=== PATIENT | female | born 1970 | race Caucasian/White ===

== ENCOUNTER → 2016-10-26 | Outpatient (CLI) | payer BC ==
--- NOTE | 2016-10-28 09:45 | MM ---
Reason for exam: screening (asymptomatic). Last mammogram was performed 1 year and 11 months ago. History: Benign US left CoreBiopsy of both breasts, December 14, 2007. Physical Findings: A clinical breast exam by your physician is recommended on an annual basis and results should be correlated with mammographic findings. MG Screening Mammo w CAD Bilateral CC and MLO view(s) were taken. Prior study comparison: November 13, 2014, bilateral MG screening mammo w CAD. August 22, 2012, bilateral digital screening mammo w/CAD. The breast tissue is heterogeneously dense. This may lower the sensitivity of mammography. Focal asymmetry upper central right breast. This finding is changed when compared with previous exams. ASSESSMENT: Incomplete: need additional imaging evaluation, BI-RAD 0 RECOMMENDATION: Special view mammogram and ultrasound of the right breast. [facility] will attempt to contact patient to return for supplemental views and ultrasound.
== END | disposition home or self-care (01) ==
LOC: RADMAMWWP 15:40
PROVIDERS: ATTEND Obstetrics & Gynecology
DX: Z12.31 Encounter for screening mammogram for malignant neoplasm of breast (principal); R92.2 Inconclusive mammogram

== ENCOUNTER → 2016-10-29 | Outpatient (CLI) | payer BC ==
--- NOTE | 2016-10-29 08:37 | MM ---
Reason for exam: additional evaluation requested from abnormal screening. Last mammogram was performed less than 1 month ago. History: Benign US left CoreBiopsy of both breasts, December 14, 2007. Cyst aspiration of the right breast, 2006. Physical Findings: Nurse did not find any significant physical abnormalities on exam. MG Work Up Mamm w CAD RT ML, spot compression CC, and spot compression MLO view(s) were taken of the right breast. Prior study comparison: October 26, 2016, bilateral MG screening mammo w CAD. November 13, 2014, bilateral MG screening mammo w CAD. August 22, 2012, bilateral digital screening mammo w/CAD. The breast tissue is heterogeneously dense. This may lower the sensitivity of mammography. Dense tissue persist on the additional views. Some benign milk of calcium and round calcifications are demonstrated. These results were verbally communicated with the patient and result sheet given to the patient on 10/29/16. ASSESSMENT: Incomplete: need additional imaging evaluation, BI-RAD 0 RECOMMENDATION: Ultrasound of the right breast. (periareolar)
--- NOTE | 2016-10-29 08:40 | USB ---
Reason for exam: additional evaluation requested from abnormal screening. History: Benign US left CoreBiopsy of both breasts, December 14, 2007. Cyst aspiration of the right breast, 2006. US Breast Workup Limited RT Right breast ultrasound demonstrates a 0.93 x 0.68 x 0.77cm mixed lesion at 1 o'clock, can be reassessed in 6 months and several cystic, benign lesions measuring 0.62 x 0.55 x 0.62cm at 3 o'clock, 0.61 x 0.30 x 0.39cm at 5 o'clock, 0.8 x 0.17 x 0.54cm at 5 o'clock and 2.4 x 0.4 x 0.94cm at 7 o'clock. These results were verbally communicated with the patient and result sheet given to the patient on 10/29/16. ASSESSMENT: Probably benign, BI-RAD 3 RECOMMENDATION: Ultrasound of the right breast in 6 months. (targeted 1 o'clock)
== END | disposition home or self-care (01) ==
LOC: RADMAMWWP 06:59
PROVIDERS: ATTEND Obstetrics & Gynecology
DX: R92.8 Other abnormal and inconclusive findings on diagnostic imaging of breast (principal); R92.2 Inconclusive mammogram
CPT/HCPCS: 76642; G0206

== ENCOUNTER → 2017-05-21 | Outpatient (CLI) | payer BC, OTHER ==
--- NOTE | 2017-05-24 07:42 | USB ---
Reason for exam: follow-up at short interval from prior study. History: Benign US left CoreBiopsy of both breasts, December 14, 2007. Cyst aspiration of the right breast, 2006. Physical Findings: Nurse did not find any significant physical abnormalities on exam. US Breast RT Right breast ultrasound includes all four quadrants, the retroareolar region and axilla. Finding demonstrates a 0.7 x 0.7 x 0.6cm oval, stable, cystic lesion at 3 o'clock, a 0.4 x 0.4 x 0.3cm oval, cystic lesion at 5 o'clock, a 0.3 x 0.6 x 0.2cm oval, lesion too small to characterize at 5 o'clock, a 0.3 x 0.4 x 0.2cm oval, lesion too small to characterize at 5 o'clock, a 1.1 x 0.6 x 0.4cm cluster too small to characterize at 7 o'clock possible debris, a 0.5 x 0.6 x 0.5cm oval, cystic lesion at 8 o'clock, a 0.7 x 0.5 x 0.4cm oval, cystic lesion at 9 o'clock and a 0.4 x 0.4 x 0.4cm hypoechoic lesion at 9 o'clock. Overall fibrocystic change. These results were verbally communicated with the patient and result sheet given to the patient on 05/21/17. ASSESSMENT: Probably benign, BI-RAD 3 RECOMMENDATION: Follow-up diagnostic mammogram of both breasts in 6 months. Back on schedule.
== END | disposition home or self-care (01) ==
LOC: RADUSWWP 10:08
PROVIDERS: ATTEND Obstetrics & Gynecology
DX: R92.8 Other abnormal and inconclusive findings on diagnostic imaging of breast (principal)

== ENCOUNTER → 2018-01-12 | Outpatient (CLI) | payer BC, OTHER ==
--- NOTE | 2018-01-12 13:54 | MM ---
Reason for exam: additional evaluation requested from prior study. Last mammogram was performed 1 year and 3 months ago. History: Benign US left CoreBiopsy of both breasts, December 14, 2007. Cyst aspiration of the right breast, 2006. Took hormonal contraceptives beginning at age 18. Physical Findings: Nurse did not find any significant physical abnormalities on exam. MG 3D Diag Mammo W/Cad EUGENIO Bilateral CC and MLO view(s) were taken. Prior study comparison: October 29, 2016, right breast MG work up mamm w CAD RT. October 26, 2016, bilateral MG screening mammo w CAD. The breast tissue is heterogeneously dense. This may lower the sensitivity of mammography. Finding: There is a typically benign equal density (isodense), obscured round mass located 7 cm from the nipple in the 9 o'clock posterior position of the right breast. Previous mammotome biopsy in the left breast. New finding since October 29, 2016 and October 26, 2016. These results were verbally communicated with the patient and result sheet given to the patient on 01/12/18. ASSESSMENT: Incomplete: need additional imaging evaluation, BI-RAD 0 RECOMMENDATION: Ultrasound of the right breast.
--- NOTE | 2018-01-12 13:57 | USB ---
Reason for exam: additional evaluation requested from abnormal screening. History: Benign US left CoreBiopsy of both breasts, December 14, 2007. Cyst aspiration of the right breast, 2006. Took hormonal contraceptives beginning at age 18. US Breast Limited RT Right breast ultrasound demonstrates a 0.5 x 0.5 x 0.5cm cystic lesion with nodule at 8 o'clock for which a biopsy is recommended, a 0.5 x 0.4 x 0.4cm cystic lesion at 12 o'clock and a 0.5 x 0.4 x 0.6cm mixed lesion at 8:30. These results were verbally communicated with the patient and result sheet given to the patient on 01/12/18. ASSESSMENT: Suspicious, BI-RAD 4 RECOMMENDATION: Ultrasound core biopsy of the right breast. Called Dr. Thomas with mammographic findings and has scheduled an appointment for the patient for 01/27/18 at 9:[address] Garcia. PRELIMINARY REPORT CALLED AND FAXED TO DR. GARCIA ON 01/12/18.
== END | disposition home or self-care (01) ==
LOC: RADMAMWWP 10:51
PROVIDERS: ATTEND Obstetrics & Gynecology
DX: R92.8 Other abnormal and inconclusive findings on diagnostic imaging of breast (principal)
CPT/HCPCS: 77066; 76642; G0279

== ENCOUNTER → 2018-02-07 | Day surgery (SDC) | payer BC, OTHER ==
[2018-02-07 07:24] VITALS: RESP 16; BMI 33.4
[2018-02-07 08:53] VITALS: BP 139/89; PULSE 84; TEMP 98.4
--- NOTE | 2018-02-07 09:39 | USB ---
EXAMINATION TYPE: US breast aspiration single RT DATE OF EXAM: 02/07/2018 COMPARISON: 01/12/2018 CLINICAL HISTORY: R92.8 abnormal mammo. PROCEDURE: The procedure of ultrasound guided core biopsy was explained to the patient. Benefits, alternatives, and risks were discussed. An informed consent was then obtained. Preprocedural timeout was performed. The patient was placed in supine positioning for imaging and for the procedure. The overlying skin was prepped and draped in usual sterile fashion. 10 cc of lidocaine without epinephrine was used as anesthetic into the skin and subcutaneous tissue up to the 0.5 x 0.5 x 0.5 cm cyst at the 8:00 position within the right breast. Under ultrasound guidance, an 18-gauge spinal needle was used to aspirate the cyst and perform fine-needle aspiration. Scant simple thin yellow fluid was withdrawn and therefore no biopsy marker was placed. Sample sent to the pathology department for analysis. The patient tolerated the procedure well without any immediate complication. The patient was kept in the radiology department for short stay after the procedure and then discharged home in stable condition. IMPRESSION: Successful ultrasound-guided cyst aspiration of a 5 mm cyst at the 8:00 position, that appeared complicated on the ultrasound dated 01/12/2018. Pathology pending. Pathology Results: High Risk RIGHT BREAST CYSTIC LESION, FINE NEEDLE ASPIRATION: SUSPICIOUS FOR PAPILLARY LESION, SEE COMMENT. Recommendation Follow up ultrasound of the right breast in 6 months. (to assess for re-accumulation of fluid) Surgical consult of the right breast. (non-atypical cells only suggesting papillary lesion) MTDD
== END | disposition home or self-care (01) ==
LOC: RADUSWWP 06:59
PROVIDERS: ATTEND Surgery
DX: R92.8 Other abnormal and inconclusive findings on diagnostic imaging of breast (principal); Z80.0 Family history of malignant neoplasm of digestive organs
CPT/HCPCS: 88173; 76942; 19000; J2001

== ENCOUNTER → 2018-02-17 | Outpatient (CLI) | payer BC, OTHER ==
--- NOTE | 2018-02-17 09:29 | P.GSHP ---
History of Present Illness H&P Date: 02/17/18 The patient is a 47-year-old white female who underwent an ultrasound aspiration of a cyst on 02/07/2018. The pathology revealed a papillary lesion. Recommendation is for surgical excision, however no clip was left behind as it was felt that this was a non-worrisome cyst. Patient denies any problems or complications after her cyst aspiration. This was at the 8 o'clock position of the right breast. Family history of any cancers: Negative for cancer Hormonal recurrent: control Pills: approximately 3 years 3 pregnancies first at the age of 25 Patient breast fed all 3 Menarche: 12 Patient is having regular periods Patient surgical history: 1. Core biopsy of the left breast which was benign approximately 2006 2. Sebaceous cyst removed from the right breast in the past - Constitutional Constitutional: Denies chills, Denies fever - EENT Eyes: denies blurred vision, denies pain Ears, nose, mouth and throat: Denies headache, Denies sore throat - Breasts Breasts: bilateral: as per HPI - Cardiovascular Cardiovascular: Denies chest pain, Denies shortness of breath - Respiratory Respiratory: Denies cough, Denies 7 - Gastrointestinal Gastrointestinal: Denies abdominal pain, Denies diarrhea, Denies nausea, Denies vomiting - Genitourinary (Female) Comment: Menstrual periods every 3 weeks Genitourinary: Denies dysuria, Denies hematuria - Genitourinary (Male) Genitourinary: Denies dysuria, Denies hematuria - Musculoskeletal Musculoskeletal: Denies myalgias - Integumentary Integumentary: Denies pruritus, Denies rash - Neurological Neurological: Denies numbness, Denies weakness - Psychiatric Psychiatric: Denies anxiety, Denies depression - Endocrine Endocrine: Denies fatigue, Denies weight change Past Medical History Past Medical History: No Reported History History of Any Multi-Drug Resistant Organisms: None Reported Additional Past Surgical History / Comment(s): Hx. benign left breast u/s core bx. 2007 Past Anesthesia/Blood Transfusion Reactions: No Reported Reaction Past Psychological History: No Psychological Hx Reported Smoking Status: Never smoker Past Alcohol Use History: None Reported Past Drug Use History: None Reported Medications and Allergies Home Medications Medication Instructions Recorded Confirmed Type No Known Home Medications [No 01/31/18 02/07/18 History Known Home Medications] Allergies Allergy/AdvReac Type Severity Reaction Status Date / Time Penicillins Allergy Rash/Hives Verified 02/07/18 07:15 Surgical - Exam - General well developed, well nourished, no distress - Eyes normal ocular movement, no icteric - ENT no hearing loss, no congestion - Neck no masses, trachea midline - Respiratory normal respiratory effort, clear to auscultation - Cardiovascular Rhythm: regular Heart Sounds: normal: S1, S2 - Abdomen Abdomen: soft, non tender, no guarding, no rigid, no rebound - Integumentary no rash, no abnormal pigmentation - Neurologic no disoriented, no combative - Psychiatric oriented to time, oriented to person, oriented to place, speech is normal, memory intact Breast examination: Right breast: Fibrocystic changes no discrete dominant mass or nodules of concern, the area of the biopsy is well-healed with no evidence of any infection Left breast: Fibrocystic changes no discrete dominant masses or nodules of concern increased fibrocystic tissue at the 12 o'clock position Bilateral axilla: No adenopathy of concern Results Cytologies from FNA of the right breast reveals papillary cells Assessment and Plan Assessment: Impression/plan: 1. Abnormal ultrasound of the right breast status post aspiration Papillary cells noted when aspiration done, no clip was left behind were therefore I tried to determine the best way to evaluate this area I will discuss with radiology whether an MRI would be indicated or repeat ultrasound now to identify the area where the aspiration was done if this is not possible that we'll most likely repeat ultrasound in 3 months time with repeat examination at that time the patient notices anything prior to that she will call us immediately 2. Cystic breast changes
[2018-02-17 09:40] VITALS: BP 133/87; PULSE 84
[2018-02-17 09:50] VITALS: RESP 18; TEMP 98; BMI 73.7
--- NOTE | 2018-02-17 11:05 | USB ---
Reason for exam: clinical finding. History: High risk US breast aspiration single RT of the right breast, February 07, 2018. Benign US left CoreBiopsy of both breasts, December 14, 2007. Cyst aspiration of the right breast, 2006. Took hormonal contraceptives beginning at age 18. US Breast Limited RT Right limited breast ultrasound including focal area of concern, retroareolar and axilla demonstrates overall fibrocystic change. These results were verbally communicated with the patient and result sheet given to the patient on 02/17/18. ASSESSMENT: Probably benign, BI-RAD 3 RECOMMENDATION: Ultrasound of the right breast in 3 months.
--- NOTE | 2018-02-17 11:14 | P.PN ---
Progress Note - Text Progress Note Date: 02/17/18 Patient had a repeat ultrasound today to see if any hematoma was noted at the site where the prior core biopsy had been done. No hematoma was noted and the recommendations for patient to have a repeat ultrasound and physical exam in 3 months time. It was felt that an MRI would not be beneficial at this time after review with radiology. Patient understands and will be seen in 3 months.
== END | disposition home or self-care (01) ==
LOC: WWCWWP 08:55
PROVIDERS: ATTEND Surgery
DX: N60.01 Solitary cyst of right breast (principal)

== ENCOUNTER → 2018-05-23 | Outpatient (CLI) | payer BC, OTHER ==
--- NOTE | 2018-05-24 10:20 | USB ---
History: High risk US breast aspiration single RT of the right breast, February 07, 2018. Benign US left CoreBiopsy of both breasts, December 14, 2007. Cyst aspiration of the right breast, 2006. Took hormonal contraceptives beginning at age 18. Physical Findings: Nurse Summary: 0.5 cm round pea size nodule right breast at 6 o'clock. Scattered upper outer quadrant nodularities. US Breast RT Right complete breast ultrasound includes all four quadrants, the retroareolar region and axilla. Finding demonstrates multicystic right breast. Not all measured that were seen as some very small. A 0.4 x 0.5 x 0.3 cm oval hypoechoic at 12 o'clock, a 0.6 x 0.6 x 0.6 oval cystic at 3 o'clock, a 0.4 x 0.3cm oval mixed at 3 o'clock, a0.3 x 0.6 x 0.3 cm oval mixed at 5 o'clock these two are probably small deep cysts. A 0.4 x 0.4 x 0.2 cm oval cystic at 5 o'clock, a 0.6 x 0.6 cm oval cystic at 6 o'clock, a 0.3 x 0.3 x 0.4 cm cystic at 6 o'clock, a 0.5 x 0.3 x 0.3 cm hypoechoic at 8 o'clock, a possible residual cystic lesion from prior aspiration no change in size at 8 o'clock measuring 0.2 x 0.2 x 0.2 cm. At the 9 o'clock multiple small cysts in dense tissue, and at 10 o'clock a 0.5 x 0.5 x 0.4 oval cystic lesion. These results were verbally communicated with the patient and result sheet given to the patient on 05/23/18. ASSESSMENT: Probably benign, BI-RAD 3 RECOMMENDATION: Ultrasound of the right breast in 6 months. Patient will be due for her mammogram in January 2019.
== END ==
LOC: RADUSWWP 09:39
PROVIDERS: ATTEND Obstetrics & Gynecology
DX: R92.8 Other abnormal and inconclusive findings on diagnostic imaging of breast (principal)

== ENCOUNTER → 2019-02-28 | Outpatient (CLI) | payer BC, OTHER ==
--- NOTE | 2019-02-28 14:58 | MM ---
Reason for exam: additional evaluation requested from prior study. Last mammogram was performed 1 year and 2 months ago. History: High risk US breast aspiration single RT of the right breast, February 07, 2018. Benign US left CoreBiopsy of both breasts, December 14, 2007. Cyst aspiration of the right breast, 2006. Took hormonal contraceptives beginning at age 18. Physical Findings: Nurse did not find any significant physical abnormalities on exam. MG 3D Diag Mammo W/Cad EUGENIO Bilateral CC and MLO view(s) were taken. Prior study comparison: January 12, 2018, bilateral MG 3d diag mammo w/cad EUGENIO. October 29, 2016, right breast MG work up mamm w CAD RT. The breast tissue is heterogeneously dense. This may lower the sensitivity of mammography. There is a smaller right upper outer quadrant posterior depth mass. No suspicious abnormality. Left biopsy marker noted. Post biopsy change bilaterally. These results were verbally communicated with the patient and result sheet given to the patient on 02/28/19. ASSESSMENT: Benign, BI-RAD 2 RECOMMENDATION: Routine screening mammogram of both breasts in 1 year.
--- NOTE | 2019-02-28 15:04 | USB ---
Reason for exam: follow-up at short interval from prior study. History: High risk US breast aspiration single RT of the right breast, February 07, 2018. Benign US left CoreBiopsy of both breasts, December 14, 2007. Cyst aspiration of the right breast, 2006. Took hormonal contraceptives beginning at age 18. US Breast RT Right complete breast ultrasound includes all four quadrants, the retroareolar region and axilla. Finding demonstrates several oval, cystic lesions measuring 5 x 4 x 4mm at 12 o'clock prior 4 x 5 x 3mm, increase through transmission, cystic, 4 x 4 x 5mm at 6 o'clock prior 3 x 3 x 5mm, stable deep cyst, 5 x 3 x 5mm at 6 o'clock prior 6 x 6mm, stable deep cyst, 5 x 5 x 5mm at 7 o'clock prior measured at 6 o'clock 5 x 6 x 6mm, cystic, 6 x 4 x 6mm at 8 o'clock minimally complicated, prior size 5 x 3 x 3mm good through transmission and other smaller cysts at 8 o'clock. These results were verbally communicated with the patient and result sheet given to the patient on 02/28/19. ASSESSMENT: Benign, BI-RAD 2 RECOMMENDATION: Routine screening mammogram of both breasts in 1 year.
== END ==
LOC: RADMAMWWP 13:31
PROVIDERS: ATTEND Obstetrics & Gynecology
DX: R92.8 Other abnormal and inconclusive findings on diagnostic imaging of breast (principal)
CPT/HCPCS: 77062; 77066

== ENCOUNTER → 2020-04-29 | Outpatient (CLI) | payer BC ==
--- NOTE | 2020-04-30 12:06 | MM ---
Reason for exam: screening (asymptomatic). Last mammogram was performed 1 year and 2 months ago. History: High risk US breast aspiration single RT of the right breast, February 07, 2018. Benign US left CoreBiopsy of both breasts, December 14, 2007. Cyst aspiration of the right breast, 2006. Took hormonal contraceptives beginning at age 18. Physical Findings: A clinical breast exam by your physician is recommended on an annual basis and results should be correlated with mammographic findings. MG 3D Screening Mammo W/Cad Bilateral CC and MLO view(s) were taken. Prior study comparison: February 28, 2019, bilateral MG 3d diag mammo w/cad EUGENIO. January 12, 2018, bilateral MG 3d diag mammo w/cad EU[facility]. October 26, 2016, bilateral MG screening mammo w CAD. The breast tissue is heterogeneously dense. This may lower the sensitivity of mammography. No significant changes when compared with prior studies. ASSESSMENT: Benign, BI-RAD 2 RECOMMENDATION: Routine screening mammogram of both breasts in 1 year.
== END | disposition home or self-care (01) ==
LOC: RADMAMWWP 09:13
PROVIDERS: ATTEND Obstetrics & Gynecology
DX: Z12.31 Encounter for screening mammogram for malignant neoplasm of breast (principal)
CPT/HCPCS: 77063; 77067

== ENCOUNTER → 2021-06-05 | Outpatient (CLI) | payer BC ==
--- NOTE | 2021-06-09 11:44 | MM ---
Reason for exam: screening (asymptomatic). Last mammogram was performed 1 year and 1 month ago. History: High risk US breast aspiration single RT of the right breast, February 07, 2018. Benign US left CoreBiopsy of both breasts, December 14, 2007. Cyst aspiration of the right breast, 2006. Took hormonal contraceptives beginning at age 18. Physical Findings: A clinical breast exam by your physician is recommended on an annual basis and results should be correlated with mammographic findings. MG 3D Screening Mammo W/Cad Bilateral CC and MLO view(s) were taken. Prior study comparison: April 29, 2020, bilateral MG 3d screening mammo w/cad. February 28, 2019, bilateral MG 3d diag mammo w/cad EU[facility]. January 12, 2018, bilateral MG 3d diag mammo w/cad EU[facility]IO. October 26, 2016, bilateral MG screening mammo w CAD. The breast tissue is heterogeneously dense. This may lower the sensitivity of mammography. Previous mammotome biopsy in the left breast. Stable regional punctate calcifications. No significant changes when compared with prior studies. ASSESSMENT: Benign, BI-RAD 2 RECOMMENDATION: Routine screening mammogram of both breasts in 1 year. Patient should continue monthly self breast exams. A negative report should not preclude additional follow up of suspicious palpable abnormalities.
== END | disposition home or self-care (01) ==
LOC: RADMAMWWP 09:21
PROVIDERS: ATTEND Obstetrics & Gynecology
DX: Z12.31 Encounter for screening mammogram for malignant neoplasm of breast (principal)
CPT/HCPCS: 77063; 77067

== ENCOUNTER → 2024-03-29 | Outpatient (CLI) | payer BC ==
--- NOTE | 2024-03-30 10:34 | MM ---
Reason for Exam: Screening (asymptomatic). Last mammogram was performed 1 year(s) and 3 month(s) ago. Patient History: Menarche at age 12. First Full-Term at age 25. Postmenopausal. Hormonal Contraceptives, from age 18 until age 22. 2006, Cyst Aspiration on the Right side. 02/07/2018, High risk Cyst Aspiration on the right side. 12/14/2007, Bilateral Benign Core Biopsy. Risk Values: Abril 5 year model risk: 1.4%. NCI Lifetime model risk: 11.0%. Prior Study Comparison: 04/29/2020 Bilateral Screening Mammogram, [facility]. 06/05/2021 Bilateral Screening Mammogram, [facility]. 12/17/2022 Bilateral MG 3D screening mammo w/cad, [facility]. Tissue Density: The breasts are heterogeneously dense, which may obscure small masses. Findings: Analyzed By CAD. There is no suspicious group of microcalcifications or new suspicious mass in either breast. Overall Assessment: Benign, BI-RAD 2 Management: Screening Mammogram of both breasts in 1 year. . Patient should continue monthly self-breast exams. A clinical breast exam by your physician is recommended on an annual basis. This exam should not preclude additional follow-up of suspicious palpable abnormalities. Note on Abril scores and lifetime risk: 1. A Abril score greater than 3% is considered moderate risk. If this is the case, consider specialist referral to assess eligibility for a risk reducing agent. 2. If overall lifetime risk for the development of breast cancer is 20% or higher, the patient may qualify for future screening with alternating mammogram and breast MRI. Electronically signed and approved by: Neeraj Irving M.D. Radiologis
== END | disposition home or self-care (01) ==
LOC: RADMAMWWP 08:55
PROVIDERS: ATTEND Family Medicine
DX: Z12.13 Encounter for screening for malignant neoplasm of small intestine (principal); Z78.0 Asymptomatic menopausal state
CPT/HCPCS: 77063; 77067

== ENCOUNTER → 2025-04-17 | Outpatient (CLI) | payer BC ==
--- NOTE | 2025-04-17 10:02 | MM ---
Reason for Exam: Screening (asymptomatic). Last mammogram was performed 1 year(s) and 1 month(s) ago. Patient History: Menarche at age 12. First Full-Term at age 25. Postmenopausal. Hormonal Contraceptives, from age 18 until age 22. 2006, Cyst Aspiration on the Right side. 02/07/2018, High risk Cyst Aspiration on the right side. 12/14/2007, Bilateral Benign Core Biopsy. Risk Values: Abril 5 year model risk: 1.5%. NCI Lifetime model risk: 10.8%. Prior Study Comparison: 06/05/2021 Bilateral Screening Mammogram, [facility]. 12/17/2022 Bilateral MG 3D screening mammo w/cad, [facility]. 03/29/2024 Bilateral MG 3D screening mammo w/cad, [facility]. Tissue Density: The breasts are heterogeneously dense, which may obscure small masses. Findings: Analyzed By CAD. Mammotome biopsy clip in the left breast is redemonstrated. There is no suspicious group of microcalcifications or new suspicious mass in either breast. Overall Assessment: Benign, BI-RAD 2 Management: Screening Mammogram of both breasts in 1 year. . Patient should continue monthly self-breast exams. A clinical breast exam by your physician is recommended on an annual basis. This exam should not preclude additional follow-up of suspicious palpable abnormalities. Note on Abril scores and lifetime risk: 1. A Abril score greater than 3% is considered moderate risk. If this is the case, consider specialist referral to assess eligibility for a risk reducing agent. 2. If overall lifetime risk for the development of breast cancer is 20% or higher, the patient may qualify for future screening with alternating mammogram and breast MRI. [facility], , 04/17/2025 9:59 AM. Electronically signed and approved by: Wai Smith M.D.
== END | disposition home or self-care (01) ==
LOC: RADMAMWWP 09:01
PROVIDERS: ATTEND Obstetrics & Gynecology
DX: Z12.31 Encounter for screening mammogram for malignant neoplasm of breast (principal); R92.333 Mammographic heterogeneous density, bilateral breasts; Z78.0 Asymptomatic menopausal state; Z92.0 Personal history of contraception
CPT/HCPCS: 77063; 77067